=== PATIENT | female | born 1995 | race African-American/Black ===

== ENCOUNTER 2022-05-26 14:17 | Outpatient (CLI) | payer OTHER, SELFPAY ==
[2022-05-26 17:39] LABS: Cholesterol* 194 mg/dL (90-199)
[2022-05-26 17:40] LABS: Glucose* 91 mg/dL (60-115); HDL Cholesterol* 88 mg/dL (>=50); LDL Cholesterol Calculated 88 mg/dL (<100); Triglycerides* 91 mg/dL (40-149)
[2022-05-26 18:57] LABS: Chlamydia DNA Amplified* NOT DETECTED (No Detected); GC DNA Amplified* NOT DETECTED (No Detected)
== END 2022-05-26 14:18 | disposition home or self-care (01) ==
PROVIDERS: Visit Provider Registered Nurse
DX: Z11.3 Encounter for screening for infections with a predominantly sexual mode of transmission (principal); Z13.6 Encounter for screening for cardiovascular disorders; Z13.1 Encounter for screening for diabetes mellitus
CPT/HCPCS: 80061; 82947; 87491; 87591